=== PATIENT | female | born 1970 | race Asian ===

== ENCOUNTER → 2016-12-08 | Outpatient (CLI) | payer OTHER ==
[~2016-12-08] MED LIST: ALEVE220 MG PO; ENDOCET 5-3251 EACH PO; IBUPROFEN800 MG PO; TYLENOL EXTRA500 MG PO; VITAMIN D2000 INTUN PO
== END | disposition home or self-care (01) ==
LOC: CDC 14:42
DX: M48.02 Spinal stenosis, cervical region (principal); M47.12 Other spondylosis with myelopathy, cervical region
CPT/HCPCS: 93000

== ENCOUNTER 2016-12-24 05:24 | Inpatient (IN) | payer OTHER ==
[~2016-12-24] VITALS: Ht 154.9 cm; Wt 64.7 kg
[~2016-12-24 05:24] MED LIST changes: +MEGARED OMEGA-1 EAC1 PO; +ULTRAM50 MG PO; +VITAMIN D35000 UNI2 PO; +ZYRTEC10 M3 PO
[2016-12-24 06:15] VITALS: BP 125/70
[2016-12-24 14:02] VITALS: BP 130/66
[2016-12-24 20:14] VITALS: BP 138/66
[2016-12-25] VITALS (8 sets, daily range): BP systolic 110–138; BP diastolic 55–67
[2016-12-26] MEDS ORDERED: CYCLOBENZAPRINE10 MG PO (07:17)
[2016-12-26] MEDS ORDERED: ENDOCET 5-3251 EACH PO (07:17)
[2016-12-26] MEDS ORDERED: DIAZEPAM5 MG PO (07:17)
[2016-12-26] MEDS ORDERED: COMPAZINE10 MG PO (07:17)
[2016-12-26 07:45] VITALS: BP 149/70
== END 2016-12-26 10:02 | disposition home or self-care (01) | DRG 472 ==
LOC: 2SOUTH 05:24 → 3EAST 12:15
PROC: 0RG2071 Fusion of 2 or more Cervical Vertebral Joints with Autologous Tissue Substitute, Posterior Approach, Posterior Column, Open Approach (ICD-10-PCS; principal; 2016-12-24)
PROC: 01N10ZZ Release Cervical Nerve, Open Approach (ICD-10-PCS; principal; 2016-12-24)
DX: M48.8X2 Other specified spondylopathies, cervical region (principal); M47.12 Other spondylosis with myelopathy, cervical region; M48.02 Spinal stenosis, cervical region; K21.9 Gastro-esophageal reflux disease without esophagitis; G43.909 Migraine, unspecified, not intractable, without status migrainosus; Z91.040 Latex allergy status
CPT/HCPCS: 72020; 72040; 76000; 86900; 86901; C1713; J0330; J0690; J1100; J1170; J1580; J2250; J2405; J2765; J2930; J3010; J3370; J3480; Q0164; S0020